=== PATIENT | male | born 1970 | race Caucasian/White ===

== ENCOUNTER 2019-04-29 22:22 | Emergency (ER) | payer BC, OTHER ==
[2019-04-29 22:38] VITALS: BP 136/90; PULSE 101; TEMP 98; BMI 27.3
--- NOTE | 2019-04-29 23:31 | PDOC ---
History of Present Illness - General Chief Complaint: Abscess Boil Stated Complaint: ABSCESS Time Seen by Provider: 04/29/19 23:31 - History of Present Illness Initial Comments: HPI: 48yo M with PMH of HTN sent by Urgent Care with an area of pain below his left ear. Patient states this area first presented about four days ago and has become increasingly red, swollen, and tender. Was prescribed a course of augmentin which he started today. No history of poor wound healing. The area has not drained any discharge or blood. Denies fever or chills PCP: Dr. Moy Wu ROS: Constitutional: no fever, no chills HEENT: no throat pain, no dysphagia Cardiovascular: no chest pain, no palpitations Respiratory: no cough, no shortness of breath Gastrointestinal: no abdominal pain, no nausea Genitourinary: no dysuria, no hematuria Musculoskeletal: no myalgia, no arthralgia Skin: no bleeding, no itching Neurologic: no headache, no weakness Psych: no agitation, no anxiety PE: General: Awake, alert, and fully oriented, in no acute distress Head: No signs of trauma Eyes: EOMI, sclera anicteric ENT: Moist mucus membranes Neck: Normal ROM, supple, 2.5cm circular area of erythema/swelling/tenderness posterior to angle of the mandible and inferior to the pinna without fluctuance Lungs: Lungs clear, Normal breath sounds Cardio: Regular rhythm, S1 and S2 present Abdomen: Soft, nontender Extremities: Normal range of motion, Distal pulses present SKIN: Warm, Dry, normal turgor Neurologic: Cranial nerves II through XII grossly intact. Normal speech ED Course/MDM: DDX including but not limited to abscess, lymph node, inflamed hair follicle, cellulitis Bedside US without pocket of fluid to drain No airway complaints, trouble controlling secretions, or dysphagia reported To continue course of antibiotics Given referral to Head and Neck specialist Return precautions Stable for discharge Past History - Past Medical History Allergies/Adverse Reactions: Allergies Allergy/AdvReac Type Severity Reaction Status Date / Time No Known Allergies Allergy Verified 04/29/19 23:42 Home Medications: Ambulatory Orders NK [No Known Home Medication] 04/29/19 COPD: No HTN: Yes Hypercholesterolemia: Yes - Psycho Social/Smoking Cessation Hx Smoking History: Current some day smoker Information on smoking cessation initiated: No *Physical Exam - Vital Signs Last Vital Signs Temp Pulse Resp BP Pulse Ox 98 F 101 H 18 136/90 98 04/29/19 22:34 04/29/19 22:34 04/29/19 22:34 04/29/19 22:34 04/29/19 22:34 Discharge - Discharge Information Problems reviewed: Yes Clinical Impression/Diagnosis: Boil Condition: Stable Disposition: HOME - Follow up/Referral Referrals: Moy Wu [facility] [Primary Care Provider] - Bishnu Mclaughlin [Non Staff, Medical] - - Patient Discharge Instructions Patient Printed Discharge Instructions: DI for Boils Additional Instructions: You came to the emergency department because of a boil We used a bedside ultrasound and did not see anything we could drain. We have referred you to a head and neck specialist. Call and make an appointment for futher evaluation. Your workup is not complete until you do so. You can take [id number] tylenol or motrin for pain. Follow the instructions on the medication bottle. Keep taking the antibiotics you were already prescribed. - Post Discharge Activity Work/Back to School Note: Back to Work
--- NOTE | 2019-04-30 00:23 | PDOC ---
Attending Attestation - Resident Resident Name: Yannick Sandovalth [facility] Attending Attestation I have performed the following: I have examined & evaluated the patient, The case was reviewed & discussed with the resident, I agree w/resident's findings & plan - HPI HPI: 04/30/19 00:21 see resident hpi - Physicial Exam PE: 04/30/19 00:21 agree with resident exam - Medical Decision Making 04/30/19 00:21 48-year-old male with localized pain swelling and redness to the left neck, posterior to the angle of the mandible Bedside ultrasound shows probable solid center Patient placed on Augmentin by outside facility He has no difficulty swallowing, there is no respiratory distress or airway compromise In light of ultrasound findings, location of lesion patient was advised that he should be seen by a head and neck/ENT surgeon and given a name to follow-up with for further evaluation, it was explained to him that this area/lesion may need to be biopsied Patient advised to continue Augmentin and verbalized understanding
== END 2019-04-30 00:28 | disposition home or self-care (01) ==
LOC: JER 22:22
PROC: BH4CZZZ Ultrasonography of Head and Neck (ICD-10-PCS; principal; 2019-04-29)
DX: L02.92 Furuncle, unspecified (principal); I10 Essential (primary) hypertension
CPT/HCPCS: 99282-25